=== PATIENT | female | born 1955 | race Caucasian/White ===

== ENCOUNTER 2017-11-06 07:41 | Day surgery (SDC) | END 2017-11-06 15:05 | disposition home or self-care (01) ==

== ENCOUNTER 2019-01-19 07:08 | Day surgery (SDC) | payer OTHER ==
[2019-01-19] VITALS (11 sets, daily range): BP systolic 109–141; BP diastolic 62–76; PULSE 62–75; RESP 9–16; Ht 167.6 cm; Wt 77.8 kg
[~2019-01-19] VITALS: Ht 167.6 cm; Wt 77.8 kg
[~2019-01-19 07:08] MED LIST: CALC-143 PO; advil PO; naproxen PO
--- NOTE | 2019-01-19 08:42 | PREAC ---
Date/Time of Note Date/Time of Note DATE: 01/19/19 TIME: 08:42 Anesthesia Eval and Record Evaluation Time Pre-Procedure Interview DATE: 01/19/19 TIME: 08:42 Age 63 Sex female NPO: 8 hrs Preoperative diagnosis Right lower lid hemangioma Planned procedure Hemangioma excision Past Medical History Past Medical History: Includes Pulm: Smoking Hx Surgery & Anesthesia Issues No known issue Meds Anticoagulation: No Beta Frantz within 24 hr: No Reason Beta Frantz not given: Pt. not on B-Frantz Discontinued Reported Medications Calcium Citrate/Vitamin D (Citracal-Vitamin D 200 MG-250) 1 Each Tablet, 1 EACH PO DAILY, TAB 11/06/17 [advil] No Conflict Check, PO DAILY 11/06/17 [naproxen] No Conflict Check, PO DAILY for PAIN AND/OR INFLAMMATION 11/06/17 Meds reviewed: No Allergies Coded Allergies: Penicillins (Verified Allergy, Unknown, 01/19/19) Allergies Reviewed: Yes Labs/Studies Labs Reviewed: Reviewed by anesthesiologist test: N/A Pre-procedure Exam Last vitals Vital Signs Date Temp Pulse Resp B/P (MAP) Pulse Ox O2 O2 Flow FiO2 Time Delivery Rate 01/19/19 97.9 75 16 141/62 97 Room Air 08:11 (88) Airway: Adequate mouth opening Mallampati: Mallampati II Teeth: Normal Lung: Normal Heart: Normal ASA Physical Status ASA physical status: 2 Emergency: None Planned Anesthetic General/MAC: MAC Planned Pain Management Parenteral pain med Pre-operative Attestations Prior to commencing anesthesia and surgery, the patient was re-evaluated, there was verification of: *The patient's identity *The results of appropriate recent lab work and preoperative vital signs *The above evaluation not changing prior to induction *Anesthetic plan, risk benefits, alternative and complications discussed with patient/family; questions answered; patient/family understands, accepts and wishes to proceed. ANTHONY BAUTISTA MD Jan 19, 2019 08:42
--- NOTE | 2019-01-19 08:48 | HPN ---
Date/Time of Note Date/Time of Note DATE: 01/19/19 TIME: 08:48 Interval H&P Admission Note Pt. seen H&P reviewed: No system changes LAURO CHRISTIANSON MD Jan 19, 2019 08:48
[2019-01-19] MEDS ORDERED: PROPOFOL 0 ML ONE (08:52)
[2019-01-19] MEDS ORDERED: FENTAnyl 50 MCG/ML VIAL ONE (08:53)
[2019-01-19] MEDS ORDERED: MIDAZOLAM 1 MG/ML 2 ML INJ ONE (08:53)
[2019-01-19] MEDS ORDERED: LIDOCAINE 2%/EPI (MDV) 20ML INJ INJ SCH (09:00)
[2019-01-19] MEDS ORDERED: NEOMYC/POLYMYX/BACIT 3.5GM OPH OINT ONE (09:14)
[2019-01-19] MEDS ORDERED: LIDOCAINE 2%/EPI (MDV) 20ML INJ INJ ONE (09:22)
--- NOTE | 2019-01-19 09:41 | SIPON ---
Date/Time of Note Date/Time of Note DATE: 01/19/19 TIME: 09:37 Operative Report Preoperative Diagnosis hemaqngioma right lower lid Postoperative Diagnosis same Operation/Procedure Performed excision of lesion , closure of defect with advance flaps Surgeon see signature line educational assistant none4 Anesthesia: MAC Estimated blood loss: none Transfusion Required none Specimen hemangioma sent to pathology Grafts/Implants advancements flaps LAURO CHRISTIANSON MD Jan 19, 2019 09:41
[2019-01-19] MEDS ORDERED: OXYCODONE/ACETAMINOPHEN (5/325) TAB PO PRN ×2 (10:00)
[2019-01-19] MEDS ORDERED: ONDANSETRON 4 MG INJ IV PRN (10:00)
[2019-01-19] MEDS ORDERED: hydrALAzine 20 MG INJ IV PRN (10:00)
[2019-01-19] MEDS ORDERED: EPHEDrine SULFATE 50 MG/5 ML SYG IV PRN (10:00)
[2019-01-19] MEDS ORDERED: METOCLOPRAMIDE 10 MG INJ IV PRN (10:00)
[2019-01-19] MEDS ORDERED: MIDAZOLAM 1 MG/ML 2 ML INJ IV PRN (10:00)
[2019-01-19] MEDS ORDERED: LABETALOL HCL 20MG INJ IV PRN (10:00)
[2019-01-19] MEDS ORDERED: DIPHENHYDRAMINE 50 MG INJ IV PRN (10:00)
[2019-01-19] MEDS ORDERED: FENTAnyl 50 MCG/ML VIAL IV PRN ×3 (10:00)
[2019-01-19] MEDS ORDERED: MEPERIDINE 25 MG INJ IV PRN (10:00)
--- NOTE | 2019-01-19 10:49 | PAC ---
Date/Time of Note Date/Time of Note DATE: 01/19/19 TIME: 10:49 Post-Anesthesia Notes Post-Anesthesia Note Last documented vital signs Vital Signs Date Temp Pulse Resp B/P (MAP) Pulse Ox O2 O2 Flow FiO2 Time Delivery Rate 01/19/19 68 12 128/76 96 Room Air 10:19 (93) 01/19/19 99.0 10:08 Activity: WNL Respiratory function: WNL Cardiovascular function: WNL Mental status: Baseline Pain reasonably controlled: Yes Hydration appropriate: Yes Nausea/Vomiting absent: Yes Comments BT: 98.8 ANTHONY BAUTISTA MD Jan 19, 2019 10:49
--- NOTE | 2019-01-19 11:01 | OPR ---
DATE OF OPERATION: 01/19/2019 PREOPERATIVE DIAGNOSIS: Hemangioma, right lower lid. POSTOPERATIVE DIAGNOSIS: Hemangioma, right lower lid. OPERATION PERFORMED: Excision of hemangioma and closure of defect with advancement flaps. DESCRIPTION OF PROCEDURE: Following standard preparation and draping of the patient, a small amount of 2% Xylocaine with epinephrine was injected underneath the lesion and both laterally and medially. After achieving adequate anesthesia, a chalazion clamp was placed across the lid so as to enclose th e lesion to prevent bleeding. The lesion was removed as a square incision up down right and left. T here was minimal bleeding, which was controlled with cautery. A chalazion clamp was removed followin g which incisions were made both medially and laterally, the same width as the excision of the lesion . This was continues sufficiently so as to release any traction of the skin. The skin was now reapp roximated with multiple 6-0 chromic sutures. There was almost no bleeding. Adequate apposition of t he flaps was insured following which a small amount of Neosporin ointment was placed across the surge ry site. The patient returned to the recovery room in satisfactory condition. Dictated By: LAURO FORBES/ZECHARIAH Conf#: [id number] DID#: [id number] CC: LAURO CHRISTIANSON MD;*EndCC*
== END 2019-01-19 11:03 | disposition home or self-care (01) ==
LOC: SDS 07:08
PROVIDERS: ATTEND Ophthalmology
DX: D18.01 Hemangioma of skin and subcutaneous tissue (principal)
CPT/HCPCS: 67961; 88305; J2250; J3010; Z7512; Z7610